=== PATIENT | male | born 1980 | race Caucasian/White ===

== ENCOUNTER 2019-03-23 12:59 | Emergency (ER) | payer OTHER ==
[2019-03-23 13:06] VITALS: BP 123/77
--- NOTE | 2019-03-23 13:07 | EDPHY ---
H & P Stated Complaint: R knee pain Time Seen by Provider: 03/23/19 13:06 HPI/ROS: CHIEF COMPLAINT: Concerned about blood clot, right knee pain HISTORY OF PRESENT ILLNESS: The patient has a history of chronic varicose veins in his right leg. The patient noticed a small area of ecchymosis on the medial aspect of his knee. He was unaware of any specific trauma but may have hit it against something while working. The patient denies any calf pain. He denies any lower extremity numbness or weakness. The patient denies additional acute complaints. The patient has no risk factors for DVT. He denies any chest pain or shortness of breath. The patient has been ambulatory. REVIEW OF SYSTEMS: Neuro: no headache, numbness, weakness Musculoskeletal: as above Skin: As above Source: Patient Exam Limitations: No limitations - Personal History Current Tetanus/Diphtheria Vaccine: No Current Tetanus Diphtheria and Acellular Pertussis (TDAP): No Tetanus Vaccine Date: 2008 - Medical/Surgical History Hx Asthma: No Hx Chronic Respiratory Disease: No Hx Diabetes: No Hx Cardiac Disease: No Hx Renal Disease: No Hx Cirrhosis: No Hx Alcoholism: No Hx HIV/AIDS: No Hx Splenectomy or Spleen Trauma: No Other PMH: med hx-ulcers. surg-none - Social History Smoking Status: Current every day smoker - Physical Exam Exam: General Appearance: Alert, no distress Cardiovascular: Regular rate and rhythm Gastrointestinal: Abdomen is soft and nontender, no masses, bowel sounds normal Neurological: A&O, normal motor function, normal sensory exam, normal cranial nerves Skin: Small area of ecchymosis noted to the right medial knee Musculoskeletal: Full range of motion noted bilateral lower extremities, no effusion present Extremities: No calf tenderness, no clinical evidence of DVT. Patient does have superficial varicosities noted in the right leg which has been present for some time Constitutional: Initial Vital Signs Temperature (C) 36.9 C 03/23/19 13:04 Heart Rate 86 03/23/19 13:04 Respiratory Rate 16 03/23/19 13:04 Blood Pressure 123/77 H 03/23/19 13:04 O2 Sat (%) 97 03/23/19 13:04 O2 Delivery Mode Room Air Allergies/Adverse Reactions: amoxicillin trihydrate [From Amoxil] Allergy (Verified 03/23/19 13:04) Penicillins Allergy (Verified 05/28/19 13:04) Home Medications: Medication Instructions Recorded Adderall 10 MG (*) 03/23/19 Medical Decision Making ED Course/Re-evaluation: Patient presents to the ED only with ecchymosis to the right knee. There is no clinical evidence of DVT. The patient has no evidence of arterial insufficiency. The patient will be discharged home with customary aftercare instructions and return precautions. Departure - Departure Disposition: Home, Routine, Self-Care Clinical Impression: Traumatic ecchymosis of right knee, Superficial varicosities Condition: Good Instructions: Ecchymosis (ED) Additional Instructions: 1. Return to the ED for any calf pain or swelling, fever, worsening symptoms or other concerns. Referrals: SHWETHA SIBLEY [Primary Care Provider] - As per Instructions
== END 2019-03-23 13:18 | disposition home or self-care (01) ==
DX: M25.561 Pain in right knee (principal); I83.91 Asymptomatic varicose veins of right lower extremity